=== PATIENT | male | born 1970 | race Caucasian/White ===

== ENCOUNTER 2019-04-07 18:41 | Emergency (ER) | payer BC ==
[~2019-04-07] VITALS: Ht 182.9 cm; Wt 95.3 kg
[~2019-04-07 18:41] MED LIST: FLONASE; IBUPROFEN 800800 M1 PO; LEXAPRO; NAPROSYN500 MG PO; NORCO 5-325 TA1 EACH PO; OTC ALLERGY MED; VALIUM10 MG; VICODIN 5-5001 EACH PO; ZOFRAN ODT4 MG PO; ZPAK PO
[2019-04-07] MEDS ORDERED: SEROQUEL 25 MG25 M1 PO (18:48)
[2019-04-07 19:22] LABS: ABSOLUTE EOSINOPHILS 0.1 thou/uL (0.0-0.7); ABSOLUTE LYMPHOCYTES 1.6 thou/uL (0.8-5.3); ABSOLUTE MONOCYTES 0.3 thou/uL (0.0-1.2); ABSOLUTE NEUTROPHILS 2.1 thou/uL (1.6-8.1); BASOPHILS 0.2 %; EOSINOPHILS 2.7 %; HEMATOCRIT 41.3 % (42.0-52.0); HEMOGLOBIN 14.5 gm/dL (14.0-18.0); LYMPHOCYTES 39.1 %; MCH 33.4 pg (26.0-34.0); MCHC 35.1 g/dL (28.0-37.0); MONOCYTES 6.9 %; NUCLEATED RBCS 0 /100WBC; PLATELET COUNT* 200 thou/uL (150-400); POLYS 51.1 %; RBC 4.35 mil/uL (4.50-6.00); RDW-CV 12.9 % (10.5-14.5); WBC 4.1 thou/uL (4.0-11.0)
[2019-04-07 19:31] LABS: ANION GAP 8 mmol/L (7-16); BUN 15 mg/dL (7-18); CHLORIDE 108 mmol/L (98-107); CO2 26 mmol/L (21-32); CREATININE 1.1 mg/dL (0.6-1.3); GLUCOSE 104 mg/dL (70-99); POTASSIUM 3.9 mmol/L (3.5-5.1); SODIUM 142 mmol/L (136-145)
[2019-04-07 19:42] LABS: ALBUMIN 3.2 g/dL (3.4-5.0); ALKALINE PHOSPHATASE 93 U/L (46-116); NT-PRO BRAIN NAT PEPTIDE 61 pg/mL (<300); SGOT 24 U/L (15-37); SGPT 41 U/L (30-65); TOTAL BILIRUBIN 0.5 mg/dL (<0.1-1.0); TOTAL PROTEIN 6.5 g/dL (6.4-8.2); TROPONIN-I LEVEL <0.06 ng/mL (<0.06)
[2019-04-07] MEDS ORDERED: ROBAXIN500 MG PO (20:04)
[2019-04-07 20:30] VITALS: BP 146/84
--- NOTE | 2019-04-08 16:26 | EKG ---
[place] [address] ELECTROCARDIOGRAM REPORT Name: MATTIE PATINO [id number] Admission: 04/07/19 Attend Phys: Discharge: 04/07/19 Date of : 68 Report #: [id number] THIS REPORT FOR: //name// [facility] ED Test Date: 2019-04-07 Test Time: 18:45:17 Pat Name: MATTIE PATINO Department: Room: Gender: M [employer] Filler: : 1970 Requested By: Abdifatah Pena Order Number: [id number] MD: Leroy Mcneal Measurements Intervals [place] Rate: 122 P: 55 [place]: 159 QRS: 22 QRSD: 105 T: 15 QT: 305 QTc: 435 Interpretive Statements Sinus tachycardia RSR' in V1 or V2, right VCD or RVH Compared to ECG 02/18/2012 23:01:34 Right ventricular hypertrophy now present RSR' in V1 or V2 now present Sinus bradycardia no longer present Sinus arrhythmia no longer present Electronically Signed On 04-08-2019 16:25:58 CDT by Leroy Mcneal [email or web address] <ELECTRONICALLY SIGNED> By: Leroy Mcneal MD, FACC 04/08/19 1625 1845 1845 Leroy Mcneal MD, [facility] /EPI
== END 2019-04-07 20:30 | disposition home or self-care (01) ==
LOC: M.ERS 18:41
PROVIDERS: Nurse Practitioner Family
DX: S39.012A Strain of muscle, fascia and tendon of lower back, initial encounter (principal); S29.012A Strain of muscle and tendon of back wall of thorax, initial encounter; R00.2 Palpitations; V49.69XA Unspecified car occupant injured in collision with other motor vehicles in traffic accident, initial encounter; Y93.89 Activity, other specified; Y92.89 Other specified places as the place of occurrence of the external cause; Y99.8 Other external cause status